=== PATIENT | male | born 1990 | race Caucasian/White ===

== ENCOUNTER 2016-11-01 16:27 | Inpatient (IN) ==
[2016-11-01 17:14] LABS: Basophils % 0.5 %; Eosinophils % 0.5 %; Hematocrit 41.1 % (37.5-50.1); Immature Granulocytes % 0.2 % (0-4); Mean Corpuscular HGB Conc 34.1 g/dL (31.6-35.5); Mean Corpuscular Hemoglobin 28.8 pg (28.0-33.3); Mean Corpuscular Volume 84.6 fL (83.0-100.0); Mean Platelet Volume 10.7 fL (9.4-12.4); Monocytes # 0.4 K/mcL (0.0-1.3); Monocytes % 5.3 %; Neutrophils # 5.8 K/mcL (1.6-8.9); Platelet Count 240 K/mcL (140-400); Red Blood Count 4.86 M/mcL (4.19-5.50); Red Cell Distribution Width 11.9 % (11.5-14.5); Segmented Neutrophils % 69.5 %
[2016-11-01 17:27] LABS: BUN/Creatinine Ratio 11 (6-26); Blood Urea Nitrogen 11 mg/dL (8-26); Calcium 9.7 mg/dL (8.6-10.8); Carbon Dioxide 25 mEq/L (19-29); Chloride 104 mEq/L (98-109); Glucose 116 mg/dL (70-99); Osmolality,Calculated 286 (280-300); Potassium 3.6 mEq/L (3.5-4.5); Sodium 138 mEq/L (136-145); eGFR For African Americans > 60 (> 60); eGFR For Non-African Americans > 60 (> 60)
[2016-11-01 17:29] LABS: Acetaminophen < 1.0 mcg/mL (10-30); Ethanol < 10 mg/dL (0-10); Salicylate < 5.0 mg/dL (15-30)
[2016-11-01] MEDS ORDERED: Ondansetron ODT 4 MG TAB.RAPDIS SL ONE (17:52)
--- NOTE | 2016-11-01 17:59 | Emergency Department Note ---
START Narrative - START START: I examined this patient and my medical decision-making was reviewed with the SCALE AGENT/PA/Advanced Practice Nurse/Resident Physician. I agree with the documented findings, disposition and treatment plan as described except to the extent set forth below. ED attending note: Patient seen with emergency medicine resident Dr CERVANTES. We independently evaluated the patient. We independently had [id number] contact with the patient. Please see a copy of his note for details of the history and physical, evaluation, management and disposition of this emergency Department patient. Briefly: A 26-year-old right-hand dominant male presents with a deep laceration self-inflicted in his lower left forearm near the antecubital fossa. Bleeding was controlled with pressure dressing and is here for further evaluation. Event happened about 2 hours prior to arrival. Tetanus status is up-to-date. Patient is neurovascular intact has approximately an 10 cm long 4 cm wide laceration going through the skin and subcutaneous fat to the muscle muscle belly I believe the brachial radialis was partially transected. He has good strength and sensory no arterial bleeding noted. Will be irrigated and explored and repaired. Please see procedure note. Then will be medically cleared and evaluated by mental health for suicidal gesture.
[2016-11-01] MEDS ORDERED: Lidocaine/EPI 1:200k 1% PF 10 ML VIAL ONE (18:00)
--- NOTE | 2016-11-01 18:12 | Emergency Department Note ---
Disposition Clinical Impression: Suicidal ideation, Self-inflicted injury Disposition: Admitted As Inpatient Condition: Good Referrals: NONE,PCP [Primary Care Provider] - Forms: ED Satisfaction Letter Time of Disposition: 22:22 Psych HPI - General Chief Complaint: ED Psychiatric Symptoms Stated Complaint: SI/ L arm laceration Time Seen by Provider: 11/01/16 17:27 Source: patient Nursing Notes Reviewed: Yes Vital Signs Reviewed: Yes - History of Present Illness HPI Narrative: Patient is a 26-year-old male who presents to [facility] ED with a chief complaint of left arm laceration and suicidal ideation. States things were getting too overwhelming for him and the to the knife and cut his arm. Patient states he has been through a lot recently and the stresses too much and by cutting his arm, he helps relieve stress. Denies any nausea, vomiting, fever or chills. No chest pain, difficulty breathing, abdominal pain. No problems with urination or bowel movements. Patient did not have any follow-up with mental health. He currently denies any suicidal ideation or homicidal ideation. However he did cut very deeply into his arm. 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 History of similar episodes: Yes Improves with: none Worsens with: none Context: significant life stressor Alleged intoxication: No Associated Psychiatric Symptoms: suicidal ideation Associated symptoms: Reports: denies other symptoms Traumatic symptoms: extremity injury, laceration Treatments prior to arrival: none Self harm or harm to others: admits thoughts of self harm - Related Data Previous Rx's Medication Instructions Recorded Cyclobenzaprine HCl 5 - 10 mg PO TID PRN #30 tablet 09/01/16 Ibuprofen 800 mg PO Q6-8H PRN #30 tablet 09/01/16 predniSONE [PredniSONE] 40 mg PO DAILY #10 tablet 09/01/16 Allergies Allergy/AdvReac Type Severity Reaction Status Date / Time No Known Allergies Allergy Verified 01/01/15 18:44 All systems ED: reviewed and negative except as stated. Past Medical History - Past Medical History Attestation: Yes The following information was validated with the patient. Source: patient Medical history: Reports: no medical history Surgical history: Reports: knee replacement Psychiatric history: Reports: anxiety, depression - Social History Smoking Status: Current every day smoker Smokeless Tobacco Status: No Alcohol use: Reports: occasionally Drug use: Reports: marijuana Physical Exam - General Limitations: no limitations General appearance: alert, in no apparent distress - Head Head exam: atraumatic, normocephalic, normal inspection - Eye Eye exam: Present: normal appearance, PERRL, EOMI - ENT ENT exam: normal exam, normal oropharynx, mucous membranes moist - Neck Neck exam: Present: normal inspection, full ROM, trachea midline - Chest Chest inspection: Present: normal inspection, symmetric chest wall rise - Respiratory Respiratory exam: Present: normal lung sounds bilaterally - Cardiovascular Cardiovascular exam: Present: normal rhythm, tachycardia, normal heart sounds - Abdominal Exam Abdominal exam: Present: soft, Non-Tender. Absent: tenderness, distention, guarding, rebound, rigidity - Expanded Upper Extremity Exam Forearm/Wrist exam: Present: laceration (6.5 cm laceration down to muscle) - Back Exam Back exam: Present: normal inspection, full ROM. Absent: tenderness - Neurological Exam Neurological exam: Present: alert, oriented X3 - Psychiatric Psychiatric exam: Present: normal affect, normal mood - Skin Skin exam: Present: warm, dry, intact, normal color Course Course Narrative: Patient seen and examined. Patient has large left arm laceration that exposes the muscle. No obvious signs of arterial bleed. Patient able to pronate and supinate his arm without difficulty. Patient's pulses intact distally as well as sensation intact. No difficulty with thumb opposition and good hand muscle strength. Patient's laceration repaired by medical student. Patient tolerated well. Patient denies that this was a suicidal attempt, however he did cut very deeply. He has been under a lot of stress and does not have psychiatric follow- up, we will medically clear and then have psychiatric evaluation. - Reevaluation(s) Reevaluation #1: Pt was evaluated by mental health service after medical clearance. After discussion with the psychiatric attending Dr. Lopes. Patient accepted for admission. [place] slip was requested and was completed and on chart. Patient to be admitted in stable condition. Time: 22:22 Vital Signs Temperature 98.0 F 11/01/16 16:34 Pulse Rate 115 11/01/16 16:34 Respiratory Rate 20 11/01/16 16:34 Blood Pressure 160/99 11/01/16 16:34 O2 Sat by Pulse Oximetry 97 11/01/16 16:34 Temperature 98.0 F 11/01/16 16:34 Pulse Rate 115 11/01/16 16:34 Respiratory Rate 20 11/01/16 16:34 Blood Pressure 160/99 11/01/16 16:34 O2 Sat by Pulse Oximetry 97 11/01/16 16:34 Oxygen Delivery Oxygen Delivery Room Air Procedures - Laceration Laceration 1 Side (If applicable): left Size (cm): 6.5 Description: linear Depth: simple, single layer, involves muscle layer (A few muscle fibers cut through. Nothing deep to repair.) Local Anesthetic: lidocaine 2%, with epi Amount of Anesthesia Used (mL): 15 Pre-repair: wound explored, irrigated extensively, deep structures intact Skin layer closed with: nylon Size: 3-0 Number of sutures/cherelle: 14 Technique: simple, interrupted Subcutaneous layer closed with: vicryl Size: 3-0 Number of sutures: 5 Technique: simple, interrupted Psych - Medical Records Medical records reviewed: Yes I reviewed the patient's medical records. - Lab Data Lab results reviewed: Yes I reviewed the patient's lab results. Result diagrams: 11/01/16 17:02 11/01/16 17:02 Lab Results 11/01/16 11/01/16 11/01/16 Range/Units 17:02 17:02 19:34 WBC 8.3 (4.3-11.1) K/mcL RBC 4.86 (4.19-5.50) M/mcL Hgb 14.0 (12.9-16.9) g/dL Hct 41.1 (37.5-50.1) % MCV 84.6 (83.0-100.0) fL MCH 28.8 (28.0-33.3) pg MCHC 34.1 (31.6-35.5) g/dL RDW 11.9 (11.5-14.5) % Plt Count 240 (140-400) K/mcL MPV 10.7 (9.4-12.4) fL Immature Gran % 0.2 (0-4) % Seg Neutrophils % 69.5 % Lymphocytes % 24.0 % Monocytes % 5.3 % Eosinophils % 0.5 % Basophils % 0.5 % Neutrophils # 5.8 (1.6-8.9) K/mcL Lymphocytes # 2.0 (0.6-4.6) K/mcL Monocytes # 0.4 (0.0-1.3) K/mcL Eosinophils # 0.0 (0.0-0.6) K/mcL Basophils # 0.0 (0.0-0.2) K/mcL Sodium 138 (136-145) mEq/L Potassium 3.6 (3.5-4.5) mEq/L Chloride 104 (98-109) mEq/L Carbon Dioxide 25 (19-29) mEq/L BUN 11 (8-26) mg/dL Creatinine 1.00 (0.72-1.25) mg/dL Est GFR ( Amer) > 60 (> 60) Est GFR (Non-Af Amer) > 60 (> 60) BUN/Creatinine Ratio 11 (6-26) Glucose 116 H (70-99) mg/dL Calculated Osmolality 286 (280-300) Calcium 9.7 (8.6-10.8) mg/dL Urine Color Yellow (Yellow) Urine Clarity Cloudy A (Clear) Urine pH 7.5 (5.0-8.0) pH Units Ur Specific [place] 1.022 (1.010-1.025) Urine Protein Trace (Neg-Trace) mg/dL Urine Glucose (UA) Normal (Normal) mg/dL Urine Ketones Negative (Negative) mg/dL Urine Blood Negative (Negative) Urine Nitrite Negative (Negative) Urine Bilirubin Negative (Negative) Urine Urobilinogen Normal (Normal) mg/dL Ur Leukocyte Esterase Trace H (Negative) Urine Microscopic RBC 0-3 (0-3) per hpf Urine Microscopic WBC 0-3 (0-3) per hpf Ur Squamous Epith Cells Few (None-Few) per lpf Urine Bacteria None Seen (None-Few) per hpf Hyaline Casts None Seen (None-Few) per lpf Urine Mucus Few (Few) Ur Culture Indicated? YES A (NO) Salicylates < 5.0 L (15-30) mg/dL Urine Opiates Screen (Wjzrnw=391) ng/mL Acetaminophen < 1.0 L (10-30) mcg/mL Ur Barbiturates Screen (Nnoprx=757) ng/mL Ur Phencyclidine Scrn (Cutoff=25) ng/mL Ur Amphetamines Screen (Lamdca=2565) ng/mL U Benzodiazepines Scrn (Uigvug=082) ng/mL Urine Cocaine Screen (Cutoff= 300) ng/mL U Marijuana (THC) Screen (Cutoff = 50) ng/mL Ethyl Alcohol < 10 (0-10) mg/dL 11/01/16 Range/Units 19:34 WBC (4.3-11.1) K/mcL RBC (4.19-5.50) M/mcL Hgb (12.9-16.9) g/dL Hct (37.5-50.1) % MCV (83.0-100.0) fL MCH (28.0-33.3) pg MCHC (31.6-35.5) g/dL RDW (11.5-14.5) % Plt Count (140-400) K/mcL MPV (9.4-12.4) fL Immature Gran % (0-4) % Seg Neutrophils % % Lymphocytes % % Monocytes % % Eosinophils % % Basophils % % Neutrophils # (1.6-8.9) K/mcL Lymphocytes # (0.6-4.6) K/mcL Monocytes # (0.0-1.3) K/mcL Eosinophils # (0.0-0.6) K/mcL Basophils # (0.0-0.2) K/mcL Sodium (136-145) mEq/L Potassium (3.5-4.5) mEq/L Chloride (98-109) mEq/L Carbon Dioxide (19-29) mEq/L BUN (8-26) mg/dL Creatinine (0.72-1.25) mg/dL Est GFR ( Amer) (> 60) Est GFR (Non-Af Amer) (> 60) BUN/Creatinine Ratio (6-26) Glucose (70-99) mg/dL Calculated Osmolality (280-300) Calcium (8.6-10.8) mg/dL Urine Color (Yellow) Urine Clarity (Clear) Urine pH (5.0-8.0) pH Units Ur Specific [place] (1.010-1.025) Urine Protein (Neg-Trace) mg/dL Urine Glucose (UA) (Normal) mg/dL Urine Ketones (Negative) mg/dL Urine Blood (Negative) Urine Nitrite (Negative) Urine Bilirubin (Negative) Urine Urobilinogen (Normal) mg/dL Ur Leukocyte Esterase (Negative) Urine Microscopic RBC (0-3) per hpf Urine Microscopic WBC (0-3) per hpf Ur Squamous Epith Cells (None-Few) per lpf Urine Bacteria (None-Few) per hpf Hyaline Casts (None-Few) per lpf Urine Mucus (Few) Ur Culture Indicated? (NO) Salicylates (15-30) mg/dL Urine Opiates Screen Negative (Vgwclh=458) ng/mL Acetaminophen (10-30) mcg/mL Ur Barbiturates Screen Negative (Mdqowc=437) ng/mL Ur Phencyclidine Scrn Negative (Cutoff=25) ng/mL Ur Amphetamines Screen Positive H (Qdjouh=7384) ng/mL U Benzodiazepines Scrn Negative (Tjqoyg=770) ng/mL Urine Cocaine Screen Negative (Cutoff= 300) ng/mL U Marijuana (THC) Screen Positive H (Cutoff = 50) ng/mL Ethyl Alcohol (0-10) mg/dL Psychiatric Medical Clearance - Medical Clearance Checklist Does the patient have a NEW psychiatric condition?: No Any abnormalities indicating possible medical illness?: No Any history of medical issues?: No Medical History: No Social History Section defined Any abnormal vital signs prior to transfer?: No Current Vitals: Last Vital Signs Temp 98.0 F 11/01/16 16:34 Pulse 115 11/01/16 16:34 Resp 20 11/01/16 16:34 BP 160/99 11/01/16 16:34 Pulse Ox 97 11/01/16 16:34 Is the patient intoxicated or cognitively impaired?: No Psychiatric Lab Panel: Drug Levels and Toxicity 11/01/16 11/01/16 17:02 19:34 Urine Opiates Screen Negative Acetaminophen < 1.0 L Ur Barbiturates Screen Negative Ur Phencyclidine Scrn Negative Ur Amphetamines Screen Positive H U Benzodiazepines Scrn Negative Urine Cocaine Screen Negative U Marijuana (THC) Screen Positive H Ethyl Alcohol < 10 Any abnormalities on the physical exam?: No Any abnormal labs?: No Abnormal Labs: Abnormal lab results Glucose 116 mg/dL (70-99) H 11/01/16 17:02 Urine Clarity Cloudy (Clear) A 11/01/16 19:34 Ur Leukocyte Esterase Trace (Negative) H 11/01/16 19:34 Ur Culture Indicated? YES (NO) A 11/01/16 19:34 Salicylates < 5.0 mg/dL (15-30) L 11/01/16 17:02 Acetaminophen < 1.0 mcg/mL (10-30) L 11/01/16 17:02 Ur Amphetamines Screen Positive ng/mL (Xnioue=5030) H 11/01/16 19:34 U Marijuana (THC) Screen Positive ng/mL (Cutoff = 50) H 11/01/16 19:34 Does the patient require durable medical equiptment?: No Is the patient ambulatory?: Yes Is the patient a fall risk?: No Has the patient been medically cleared?: Yes Any acute medical condition require Tx prior to transfer?: No Statement of Medical Clearance: I have evaluated the patient, reviewed diagnostic information, and certify that the patient's medical condition is sufficiently stable that transfer to the psychiatric unit does not pose a significant risk of deterioration.
[2016-11-01] MEDS ORDERED: Lidocaine -MPF 1% 2 ML VIAL ONE (18:16)
[2016-11-01 19:45] LABS: Bilirubin,Urine Negative (Negative); Blood,Urine Negative (Negative); Clarity,Urine Cloudy (Clear); Color,Urine Yellow (Yellow); Glucose,Urine (UA) Normal (Normal); Ketones,Urine Negative (Negative); Leukocyte Esterase,Urine Trace (Negative); Nitrite,Urine Negative (Negative); PH,Urine 7.5 pH Units (5.0-8.0); Protein,Urine Trace mg/dL (Neg-Trace); Specific Gravity,Urine 1.022 (1.010-1.025); Urobilinogen,Urine Normal (Normal)
[2016-11-01 19:46] LABS: Bacteria,Urine None Seen per hpf (None-Few); Hyaline Casts,Urine None Seen per lpf (None-Few); RBC,Urine 0-3 per hpf (0-3); Squamous Epithelial Cell,Urine Few per lpf (None-Few); WBC,Urine 0-3 per hpf (0-3)
[2016-11-01 19:50] LABS: Amphetamine Screen,Urine Positive ng/mL (Cutoff=1000); Barbiturate Screen,Urine Negative ng/mL (Cutoff=200); Benzodiazepines Screen,Urine Negative ng/mL (Cutoff=200); Cannabinoid Screen,Urine Positive ng/mL (Cutoff = 50); Cocaine Screen,Urine Negative ng/mL (Cutoff= 300); Opiate Screen,Urine Negative ng/mL (Cutoff=300); Phencyclidine Screen,Urine Negative ng/mL (Cutoff=25)
[2016-11-01 20:08] LABS: Mucus,Urine Few (Few)
[2016-11-01] MEDS ORDERED: *HR* LORazepam 2 MG/ML VIAL IM PRN (23:03)
[2016-11-01] MEDS ORDERED: MOM Conc 10 ML UD.LIQ PO PRN (23:03)
[2016-11-01] MEDS ORDERED: *HR* LORazepam 1 MG TABLET PO PRN (23:03)
[2016-11-01] MEDS ORDERED: traZODone 50 MG TABLET PO PRN (23:03)
[2016-11-01] MEDS ORDERED: Haloperidol Lactate 5 MG/ML VIAL IM PRN (23:03)
[2016-11-01] MEDS ORDERED: Mag Hydrox/Al Hydrox/Simeth 30 ML UDC PO PRN (23:03)
[2016-11-01] MEDS ORDERED: hydrOXYzine pamoate 25 MG CAPSULE PO PRN (23:03)
[2016-11-01] MEDS: Ibuprofen 400 MG TABLET PO PRN (23:44)
[2016-11-02] MEDS ORDERED: traMADol 50 MG TABLET PO PRN (00:50)
--- NOTE | 2016-11-02 13:33 | Psychiatry History & Physical ---
Date of Encounter: 11/02/16 Time of Encounter: 13:00 History of Present Illness Patient Stated Chief Complaint: "I just wanted to release some hurt out of my body." Medicare Admission Attestation: For traditional Medicare patients the provided hospital inpatient services are reasonable and necessary and in the case of services not specified as inpatient -only under 42 CFR 419.22 (n), that they are appropriately provided as inpatient services in accordance 42 CFR 412.3. For Critical Access Hospital the patient may reasonably be expected to be discharged or transferred to a hospital within 96 hours after admission to the Critical Access Hospital. Admitted From: Emergency Dept Plans for Post Hospital Care: Home History of Present Illness: Mr. Hamilton is a 26 year old male with a history of depression, anxiety, substance abuse. He presented to the hospital after cutting himself very deeply after an argument with his in-laws. Patient presented with his girlfriend to the ER and reported that he got upset and apparently cut himself with a knife right front of his girlfriend's parents. Patient denied that this was an attempt to kill himself but after staff spoke to girlfriend she was concerned that he may have been attempting to hurt himself. Patient was admitted to 18. Today he reports he does have depression. Intermittently he has difficulty with motivation and appetite. He also has difficulty concentrating. Patient thinks he requires AED medication because he used to take it when he was in high school. He does not like taking depression medications because they "make me feel weird." Patient states that most of the time he is able to walk away from situations that he feels better. When asked why he did not walk away when his girlfriend's mother told him to cut himself and "finish the job" he states that he was too upset. Patient denies any history of auditory or visual hallucinations. He denies obsessions, delusions, paranoia. He remains adamant that he never meant to kill himself but is staff consistently different stories about how the incident occurred. Past Med Surg Social Fam HX - Past Medical History Medical history: no medical history - Past Psychiatric History Psychiatric history: Reports: depression. Denies: prior suicide attempt, previous psychiatric hospitalization Past psychiatric history details: Patient denies significant admissions in the past. He has come to the ER before with depression. He has received outpatient treatment but does not like medications. Denies ever attempting suicide before. Family psychiatric history: Unknown Family History of Suicide: None - Past Surgical History Surgical History: knee replacement - Social History Smoking Status: Current every day smoker Smokeless Tobacco Status: No Alcohol use: none Drug use: marijuana Current living situation: Home Activity Level: Independent ambulation Medications & Allergies No Known Home Drugs 11/01/16 [History] Allergies No Known Allergies Allergy (Verified 01/01/15 18:44) Review of Systems Constitutional: Denies: fever, chills, weakness, weight change Eyes: Denies: eye pain, vision change Ears, Nose, Throat: Denies: ear pain, throat pain, dental pain, hearing loss, congestion Cardiovascular: Denies: chest pain, palpitations, dyspnea on exertion Respiratory: Denies: cough, dyspnea, wheezes Gastrointestinal: Denies: abdominal pain, nausea, vomiting, diarrhea, constipation Genitourinary male: Denies: urgency, dysuria, frequency, genital lesions Genitourinary female: Denies: urgency, dysuria, frequency, abnormal menses, dyspareunia Musculoskeletal: Reports: myalgia Integumentary: Denies: rash, lesions, pruritus Neurological: Reports: headache Psychiatric: Reports: depression, anxiety, irritability, mood swings. Denies: suicidal ideation, auditory hallucinations, visual hallucinations Endocrine: Denies: fatigue, heat or cold intolerance Hematologic/Lymphatic: Denies: easy bruising, lymphadenopathy Allergic/Immunologic: Denies: urticaria, itchy eyes Mental Status Exam Patient orientation: Yes Person, Yes Time, Yes Place Level of alertness: Alert Patient appearance: Disheveled, Malodorous Behavior: restless, uncooperative Psychomotor activity: Normal Eye contact: Diverts Contact Mood description: Euthymic/stable Affect description: tearful, dysphoric Speech pattern: Normal rate, Normal rhythm, Normal tone Speech volume: Normal Thought process: Intact Thought content: No Suicidal ideation, No Homicidal ideation, No Overt delusions Perceptual disturbances: No Auditory hallucinations, No Visual hallucinations Attention span: Capable of Focused Attention Memory description: Grossly Intact Patient reliability: Questionable Historian Intelligence estimate: Average Judgment: Poor Insight: Minimal Exam - HEENT Head exam IM: Present: atraumatic Eye exam IM: Present: EOMI - Neurological Neurological exam IM: Present: CN II-XII intact - Extremities Extremities exam IM: Present: full ROM - Skin Skin exam IM: Present: dry, warm Results - Vital Signs Vital signs: Temp Pulse Resp BP Pulse Ox 97 F L 61 16 122/83 97 11/02/16 09:00 11/02/16 09:00 11/02/16 09:00 11/02/16 09:00 11/01/16 16:34 - Labs Labs: Laboratory Last Values WBC 8.3 K/mcL (4.3-11.1) 11/01/16 17:02 RBC 4.86 M/mcL (4.19-5.50) 11/01/16 17:02 Hgb 14.0 g/dL (12.9-16.9) 11/01/16 17:02 Hct 41.1 % (37.5-50.1) 11/01/16 17:02 MCV 84.6 fL (83.0-100.0) 11/01/16 17:02 MCH 28.8 pg (28.0-33.3) 11/01/16 17:02 MCHC 34.1 g/dL (31.6-35.5) 11/01/16 17:02 RDW 11.9 % (11.5-14.5) 11/01/16 17:02 Plt Count 240 K/mcL (140-400) 11/01/16 17:02 MPV 10.7 fL (9.4-12.4) 11/01/16 17:02 Immature Gran % 0.2 % (0-4) 11/01/16 17:02 Seg Neutrophils % 69.5 % 11/01/16 17:02 Lymphocytes % 24.0 % 11/01/16 17:02 Monocytes % 5.3 % 11/01/16 17:02 Eosinophils % 0.5 % 11/01/16 17:02 Basophils % 0.5 % 11/01/16 17:02 Neutrophils # 5.8 K/mcL (1.6-8.9) 11/01/16 17:02 Lymphocytes # 2.0 K/mcL (0.6-4.6) 11/01/16 17:02 Monocytes # 0.4 K/mcL (0.0-1.3) 11/01/16 17:02 Eosinophils # 0.0 K/mcL (0.0-0.6) 11/01/16 17:02 Basophils # 0.0 K/mcL (0.0-0.2) 11/01/16 17:02 Sodium 138 mEq/L (136-145) 11/01/16 17:02 Potassium 3.6 mEq/L (3.5-4.5) 11/01/16 17:02 Chloride 104 mEq/L (98-109) 11/01/16 17:02 Carbon Dioxide 25 mEq/L (19-29) 11/01/16 17:02 BUN 11 mg/dL (8-26) 11/01/16 17:02 Creatinine 1.00 mg/dL (0.72-1.25) 11/01/16 17:02 Est GFR ( Amer) > 60 (> 60) 11/01/16 17:02 Est GFR (Non-Af Amer) > 60 (> 60) 11/01/16 17:02 BUN/Creatinine Ratio 11 (6-26) 11/01/16 17:02 Glucose 116 mg/dL (70-99) H 11/01/16 17:02 Calculated Osmolality 286 (280-300) 11/01/16 17:02 Calcium 9.7 mg/dL (8.6-10.8) 11/01/16 17:02 Urine Color Yellow (Yellow) 11/01/16 19:34 Urine Clarity Cloudy (Clear) A 11/01/16 19:34 Urine pH 7.5 pH Units (5.0-8.0) 11/01/16 19:34 Ur Specific [place] 1.022 (1.010-1.025) 11/01/16 19:34 Urine Protein Trace mg/dL (Neg-Trace) 11/01/16 19:34 Urine Glucose (UA) Normal mg/dL (Normal) 11/01/16 19:34 Urine Ketones Negative mg/dL (Negative) 11/01/16 19:34 Urine Blood Negative (Negative) 11/01/16 19:34 Urine Nitrite Negative (Negative) 11/01/16 19:34 Urine Bilirubin Negative (Negative) 11/01/16 19:34 Urine Urobilinogen Normal mg/dL (Normal) 11/01/16 19:34 Ur Leukocyte Esterase Trace (Negative) H 11/01/16 19:34 Urine Microscopic RBC 0-3 per hpf (0-3) 11/01/16 19:34 Urine Microscopic WBC 0-3 per hpf (0-3) 11/01/16 19:34 Ur Squamous Epith Cells Few per lpf (None-Few) 11/01/16 19:34 Urine Bacteria None Seen per hpf (None-Few) 11/01/16 19:34 Hyaline Casts None Seen per lpf (None-Few) 11/01/16 19:34 Urine Mucus Few (Few) 11/01/16 19:34 Ur Culture Indicated? YES (NO) A 11/01/16 19:34 Salicylates < 5.0 mg/dL (15-30) L 11/01/16 17:02 Urine Opiates Screen Negative ng/mL (Dsvfke=950) 11/01/16 19:34 Acetaminophen < 1.0 mcg/mL (10-30) L 11/01/16 17:02 Ur Barbiturates Screen Negative ng/mL (Teasup=886) 11/01/16 19:34 Ur Phencyclidine Scrn Negative ng/mL (Cutoff=25) 11/01/16 19:34 Ur Amphetamines Screen Positive ng/mL (Kbbvzg=6533) H 11/01/16 19:34 U Benzodiazepines Scrn Negative ng/mL (Tnycgb=661) 11/01/16 19:34 Urine Cocaine Screen Negative ng/mL (Cutoff= 300) 11/01/16 19:34 U Marijuana (THC) Screen Positive ng/mL (Cutoff = 50) H 11/01/16 19:34 Ethyl Alcohol < 10 mg/dL (0-10) 11/01/16 17:02 Assessment and Plan (1) Major depressive disorder, recurrent Current visit: Yes Status: Acute Plan: Admit inpatient for safety and stabilization, Close observation, Suicide Precautions per unit protocol, Encourage participation in unit milieu, Group Therapy, Monitor sleep, Monitor appetite Additional Plan: We will continue monitoring this patient. He has a very deep cut on his arm and refuses to discuss reasons why he decided to hurt himself. Not very cooperative or open with staff. Patient does appear very depressed and is malodorous. He does not appear to be caring for himself well. We will coordinate with family about safe discharge plan. No meds for now as patient refuses. Attempted to discuss the importance of outpatient counseling even if he does not want medications. Estimated Length of Stay (Days): 3 Qualifiers: Active/Remission status: currently active Major depression episode severity : moderate Qualified Code(s): F33.1 - Major depressive disorder, recurrent, moderate (2) Self-injurious behavior Current visit: Yes Status: Acute Additional Plan: Patient has a history of self-injurious behavior and hasvery deep self- inflicted cut on forearm. Encourage positive coping strategies. Risks, benefits, side effects, alternatives discussed w/pt: Yes Patient agreeable to treatment: Yes (3) Cannabis abuse Current visit: Yes Status: Acute Additional Plan: Encouraged patient to discontinue cannabis use. (4) Methamphetamine abuse Current visit: Yes Status: Acute Plan: Close observation Additional Plan: Encouraged patient to discontinue methamphetamine use.
[2016-11-03] MEDS: Ibuprofen 400 MG TABLET PO PRN (05:39)
[2016-11-03 08:48] VITALS: BP 128/77
--- NOTE | 2016-11-03 10:22 | Discharge Summary ---
Date of Encounter: 11/03/16 Time of Encounter: 08:40 Diagnosis - Discharge Diagnosis (1) Major depressive disorder, recurrent Priority: Primary Status: Acute Qualifiers: Active/Remission status: currently active Major depression episode severity : moderate Qualified Code(s): F33.1 - Major depressive disorder, recurrent, moderate (2) Self-injurious behavior Priority: Secondary Status: Acute (3) Cannabis abuse Priority: Secondary Status: Acute (4) Methamphetamine abuse Status: Acute Medications - Discharge Medications No Known Home Drugs 11/01/16 [History] Allergies No Known Allergies Allergy (Verified 01/01/15 18:44) Provider Date of admission: 11/01/16 22:51 Primary care physician: PCP NONE Discharging clinician: Connie Lopes Assessment and Plan - Patient/Caregiver Discharge Instructions Activity: resume usual activities as tolerated Diet: regular diet - Follow up Plan Follow up with: Roberto Harris [facility] [place] [Outside] - 11/08/16 9:15 am (The above appointment is with Alda Pena, for primary health care and medication management services. Please arrive 15 minutes early to complete paperwork. Please bring your insurance card, photo ID and medications in their original bottles. If you do not have insurance, bring proof of income to apply for the sliding fee scale. If you are unable to keep this appointment, 24 hour business notice of cancellation is expected. This is the first available appointment. You may contact the office regularly to check for cancellations that may allow you to be seen sooner. ) [place] Roberto Freedman [Outside] - 11/15/16 1:00 pm (The above appointment is with Naomy Roland for mental health and substance abuse counseling. Please bring the following with you to your first visit to the clinic: 1) proof of household income (two consecutive pay stubs, social security award letter, bank statement, statement letter from [facility], child support statement, IRS 1040 or W2 form, or a statement from the person who financially supports you stating they help provide for your basic needs), 2) proof of residency (drivers license, a piece of mail showing your address, a statement from person you live with verifying you live at their address), 3) your social security card, 4) photo ID, 5) your insurance card (if you have commercial insurance you must call to obtain a prior authorization number before you arrive to your first appointment) and 6) if you do not have insurance but have applied for Medicaid, please bring verification you have applied. This is the first available appointment. You may contact the office regularly to check for cancellations that may allow you to be seen sooner. ) Functional capacity at discharge: independent ambulation Overall status at discharge: Stable Disposition: Home, Self-Care Hospital Course Hospital course: Mr. Hamilton is a 26 year old male with a history of self-injurious behavior as well as depression and anxiety and substance use. He was admitted 1A after severe self-inflicted wound to his left forearm. Patient was placed on suicide precautions and close observation per unit protocol. He was incorporated into the therapeutic milieu and offer group and individual as well as recreational therapy. He was also offered psychoeducational materials and supportive therapy. Patient initially felt he did not need to be here and was agitated that he was being monitored. However he was cooperative with peers and staff and willing to stay for continued monitoring. He was agreeable to setting up follow-up appointments for therapy as well as to monitor his wound. Throughout the course of hospital stay the patient did report improvement in his mood. He did not regret his actions and felt that it was an impulsive and poor decision. "I will never do that again this hurts really bad." Patient denies that this was actually a suicide attempt and has continued to deny suicidal ideations throughout the admission. He will be returning home to his girlfriend and apparently her parents will not be allowed at the home. He is discharged in stable condition. - Time Spent with Patient Total time spent providing and/or coordinating discharge services: Less than 30 minutes Quality - Multiple Antipsychotics Patient discharged on 2 or more antipsychotic medications: No Procedures - Procedures Procedures: Medication Management, Crisis Stabilization, Supportive Therapy, Group Therapy, Psychoeducational Therapy Mental Status Exam - Mental Status Exam Patient orientation: Yes Person, Yes Time, Yes Place Level of alertness: Alert Patient appearance: Appropriate, Well Groomed Behavior: calm, cooperative Psychomotor activity: Normal Eye contact: Maintains Eye Contact Mood description: Euthymic/stable Affect description: congruent with mood, full range Speech pattern: Normal rate, Normal rhythm, Normal tone Speech Volume: Normal Thought process: Linear, Goal Oriented Thought Content: No Suicidal ideation, No Homicidal ideation, No Overt delusions Perceptual Disturbances: No Auditory hallucinations, No Visual hallucinations Judgment: Limited Insight: Partial
== END 2016-11-03 11:30 | disposition home or self-care (01) | DRG 364 ==
LOC: EMEROO 16:27 → 1ANU 22:51
PROVIDERS: ADMIT Student in an Organized Health Care Education/Training Program; ATTEND Student in an Organized Health Care Education/Training Program